=== PATIENT | male | born 1965 | race Caucasian/White ===

== ENCOUNTER 2018-08-20 20:30 | Emergency (ER) | payer MEDICAID ==
[~2018-08-20] VITALS: Ht 170.2 cm; Wt 76.0 kg
[~2018-08-20 20:30] MED LIST: ALBU6.7H INH; BENZ-38 PO; HALO5TAB PO; ONDA8TAB9 PO; TRAZ150T78 PO; tessalon PO
[2018-08-20 20:35] VITALS: BP 128/80
[2018-08-20] MEDS ORDERED: ipratropium/albuterol 3ml nebule NEB ONE (22:35)
[2018-08-20] MEDS ORDERED: ALBU8HFA PO (22:37)
[2018-08-20] MEDS ORDERED: PRED20TA PO (22:37)
== END 2018-08-20 23:07 | disposition home or self-care (01) ==
LOC: ER 20:30
DX: J44.1 Chronic obstructive pulmonary disease with (acute) exacerbation (principal); I10 Essential (primary) hypertension; E11.9 Type 2 diabetes mellitus without complications; Z79.899 Other long term (current) drug therapy; E11.42 Type 2 diabetes mellitus with diabetic polyneuropathy; Z60.2 Problems related to living alone; Z59.0 Homelessness; Z56.0 Unemployment, unspecified
CPT/HCPCS: 94640; 94760; 99283

== ENCOUNTER 2018-08-28 22:14 | Emergency (ER) | payer MEDICAID ==
[~2018-08-28] VITALS: Ht 170.2 cm; Wt 75.0 kg
[~2018-08-28 22:14] MED LIST changes: +ALBU8HFA PO; +PRED20TA PO
[2018-08-28 22:15] VITALS: BP 123/80
[2018-08-30] MEDS ORDERED: HYDR-3965 PO (18:17)
== END 2018-08-29 01:00 | disposition left against medical advice (07) ==
LOC: ER 22:15
DX: M54.9 Dorsalgia, unspecified (principal); Z53.21 Procedure and treatment not carried out due to patient leaving prior to being seen by health care provider

== ENCOUNTER 2018-08-30 16:11 | Emergency (ER) | payer MEDICAID ==
[~2018-08-30] VITALS: Ht 170.2 cm; Wt 72.7 kg
[2018-08-30 16:24] VITALS: BP 134/78
[2018-08-30] MEDS ORDERED: HYDR-3965 PO (18:17)
== END 2018-08-30 18:36 | disposition home or self-care (01) ==
LOC: ER 16:12
DX: S20.212A Contusion of left front wall of thorax, initial encounter (principal); J44.9 Chronic obstructive pulmonary disease, unspecified; E11.42 Type 2 diabetes mellitus with diabetic polyneuropathy; I10 Essential (primary) hypertension; F17.200 Nicotine dependence, unspecified, uncomplicated; Z79.899 Other long term (current) drug therapy; Z59.0 Homelessness; Z56.0 Unemployment, unspecified; Z60.2 Problems related to living alone; W18.2XXA Fall in (into) shower or empty bathtub, initial encounter; Y93.89 Activity, other specified; Y92.89 Other specified places as the place of occurrence of the external cause; Y99.8 Other external cause status
CPT/HCPCS: 71046; 99283

== ENCOUNTER 2018-10-24 17:38 | Emergency (ER) | payer MEDICAID ==
[~2018-10-24] VITALS: Ht 170.2 cm; Wt 78.0 kg
[~2018-10-24 17:38] MED LIST changes: -ALBU8HFA PO; -BENZ-38 PO; -PRED20TA PO
[2018-10-24 17:41] VITALS: BP 137/80
[2018-10-24] MEDS ORDERED: azithromycin 250mg tablet PO ONE (20:20)
[2018-10-24] MEDS ORDERED: ipratropium/albuterol 3ml nebule NEB ONE (20:20)
[2018-10-24] MEDS ORDERED: predniSONE 20 mg tablet PO ONE (20:20)
[2018-10-24] MEDS ORDERED: AZIT-63 PO (20:29)
[2018-10-24] MEDS ORDERED: PRED20TA PO (20:29)
[2018-10-24] MEDS ORDERED: ONDA4TAB12 PO (20:29)
[2018-10-24] MEDS ORDERED: GUAI237S46 PO (20:49)
[2018-10-24] MEDS ORDERED: ALBU8.5H8 IH (20:49)
== END 2018-10-24 20:58 | disposition home or self-care (01) ==
LOC: ER 17:39
DX: J40 Bronchitis, not specified as acute or chronic (principal); R11.10 Vomiting, unspecified; J44.9 Chronic obstructive pulmonary disease, unspecified; I10 Essential (primary) hypertension; E11.42 Type 2 diabetes mellitus with diabetic polyneuropathy; F17.200 Nicotine dependence, unspecified, uncomplicated; Z60.2 Problems related to living alone; Z59.0 Homelessness; Z56.0 Unemployment, unspecified; Z79.2 Long term (current) use of antibiotics; Z79.899 Other long term (current) drug therapy
CPT/HCPCS: 93005; 94640; 94760; 99283; J7512

== ENCOUNTER 2018-10-28 19:11 | Emergency (ER) | payer MEDICAID ==
[~2018-10-28] VITALS: Ht 170.2 cm; Wt 76.8 kg
[~2018-10-28 19:11] MED LIST changes: +ALBU8.5H8 IH; +AZIT-63 PO; +GUAI237S46 PO; +ONDA4TAB12 PO; +PRED20TA PO
[2018-10-28 19:18] VITALS: BP 123/74
== END 2018-10-28 23:12 | disposition left against medical advice (07) ==
LOC: ER 19:11
DX: M25.512 Pain in left shoulder (principal); Z53.21 Procedure and treatment not carried out due to patient leaving prior to being seen by health care provider

== ENCOUNTER 2018-10-31 08:59 | Emergency (ER) | payer MEDICAID ==
[~2018-10-31] VITALS: Ht 170.2 cm; Wt 78.0 kg
[2018-10-31 09:04] VITALS: BP 141/93
== END 2018-10-31 09:40 | disposition home or self-care (01) ==
LOC: ER 09:00
DX: M25.512 Pain in left shoulder (principal); R20.2 Paresthesia of skin; I10 Essential (primary) hypertension; J44.9 Chronic obstructive pulmonary disease, unspecified; E11.40 Type 2 diabetes mellitus with diabetic neuropathy, unspecified; Z60.2 Problems related to living alone; Z59.0 Homelessness; Z56.0 Unemployment, unspecified; Z79.2 Long term (current) use of antibiotics; Z79.899 Other long term (current) drug therapy
CPT/HCPCS: 99281

== ENCOUNTER 2019-06-09 13:21 | Emergency (ER) | payer MEDICAID ==
[~2019-06-09] VITALS: Ht 175.3 cm; Wt 78.8 kg
[~2019-06-09 13:21] MED LIST changes: -ALBU6.7H INH; +ALBU6.7H9 INH; -AZIT-63 PO; -GUAI237S46 PO; -PRED20TA PO
[2019-06-09 13:27] VITALS: BP 134/81
== END 2019-06-09 13:33 | disposition left against medical advice (07) ==
LOC: ER 13:21
DX: I10 Essential (primary) hypertension (principal); Z53.21 Procedure and treatment not carried out due to patient leaving prior to being seen by health care provider

== ENCOUNTER 2019-06-18 12:53 | Emergency (ER) | payer MEDICAID ==
[~2019-06-18] VITALS: Ht 170.2 cm; Wt 77.3 kg
--- NOTE | 2019-06-18 13:40 | NUR ---
PT IS NOT SUICIDAL AND NO THOUGHTS OF SELF HARM
[2019-06-18] MEDS ORDERED: normal saline 1000ML IV soln IVB ONE (14:20)
[2019-06-18 15:01] LABS: BASOPHILS # (AUTO) 0.1 X10'3 (0-0.2); BASOPHILS % (AUTO) 0.5 % (0-1); EOSINOPHILS % (AUTO) 0.1 % (0-6); HEMATOCRIT 46.4 % (42.0-52.0); HEMOGLOBIN 16.2 g/dl (14.0-17.9); LYMPHOCYTES # (AUTO) 1.5 X10'3 (1.1-4.8); MEAN CORPUSCULAR HEMOGLOBIN 33.2 PG (27.0-31.0); MEAN CORPUSCULAR HGB CONC 34.9 g/dL (33.0-36.5); MEAN CORPUSCULAR VOLUME 95.1 FL (78-98); MEAN PLATELET VOLUME 9.1 FL (7.4-10.4); MONOCYTES # (AUTO) 0.9 X10'3 (0-0.9); MONOCYTES % (AUTO) 8.3 % (2-12); NEUTROPHILS # (AUTO) 8.2 X10'3 (1.8-7.7); NEUTROPHILS % (AUTO) 77.1 % (42-75); PLATELET COUNT 134 X10'3 (140-440); RED BLOOD COUNT 4.88 X10'6 (4.70-6.10); RED CELL DISTRIBUTION WIDTH 13.7 % (11.5-14.5); WHITE BLOOD COUNT 10.7 X10'3 (4.5-11.0)
[2019-06-18 15:24] LABS: ALANINE AMINOTRANSFERASE 74 U/L (12-78); ALBUMIN 4.1 G/DL (3.4-5.0); ALBUMIN/GLOBULIN RATIO 1.1 (1.1-1.5); ALKALINE PHOSPHATASE 79 IU/L (46-116); ANION GAP 9 (8-16); ASPARTATE AMINO TRANSFERASE 204 U/L (10-37); BILIRUBIN,TOTAL 0.9 MG/DL (0.1-1.0); BLOOD UREA NITROGEN 16 MG/DL (7-18); BUN/CREATININE RATIO 17.4 (5.4-32.0); CALCIUM 9.1 MG/DL (8.5-10.1); CHLORIDE 100 MMOL/L (99-107); CREATININE 0.92 MG/DL (0.60-1.10); ETHANOL < 0.010 GM/DL (0.0-0.010); GLUCOSE 136 MG/DL (70-104); POTASSIUM 3.6 MMOL/L (3.5-5.1); SODIUM 137 MMOL/L (135-145); TOTAL CARBON DIOXIDE 28.5 MMOL/L (24-32); TOTAL PROTEIN 7.7 G/DL (6.4-8.2); eGFR 86 ML/MIN
[2019-06-18 16:27] LABS: URINE AMPHETAMINE SCREEN POSITIVE (Neg); URINE BARBITUATE SCREEN NEGATIVE (Neg); URINE BENZODIAZEPINES SCREEN NEGATIVE (Neg); URINE CANNABINOID SCREEN POSITIVE (Neg); URINE COCAINE SCREEN NEGATIVE (Neg); URINE METHADONE SCREEN NEGATIVE (Neg); URINE OPIATE SCREEN NEGATIVE (Neg); URINE PHENCYCLIDINE SCREEN NEGATIVE (Neg)
--- NOTE | 2019-06-18 17:45 | NUR ---
pt reports feeling better, no longer having hallucinations. Patient given meal. Given change of clothes.
[2019-06-18 17:46] VITALS: BP 159/109
== END 2019-06-18 18:03 | disposition home or self-care (01) ==
LOC: ER 12:54
DX: F19.10 Other psychoactive substance abuse, uncomplicated (principal); G47.00 Insomnia, unspecified; F20.9 Schizophrenia, unspecified; F31.9 Bipolar disorder, unspecified; E11.42 Type 2 diabetes mellitus with diabetic polyneuropathy; J44.9 Chronic obstructive pulmonary disease, unspecified; F41.9 Anxiety disorder, unspecified; I10 Essential (primary) hypertension; Z86.69 Personal history of other diseases of the nervous system and sense organs; F17.200 Nicotine dependence, unspecified, uncomplicated; F12.90 Cannabis use, unspecified, uncomplicated; F15.90 Other stimulant use, unspecified, uncomplicated; F10.99 Alcohol use, unspecified with unspecified alcohol-induced disorder; Z60.2 Problems related to living alone; Z59.0 Homelessness; Z56.0 Unemployment, unspecified; Z79.899 Other long term (current) drug therapy; Y90.9 Presence of alcohol in blood, level not specified
CPT/HCPCS: 36415; 80053; 80305; 80320; 85025; 99283; J7030

== ENCOUNTER 2019-06-19 07:22 | Emergency (ER) | payer MEDICAID ==
[~2019-06-19] VITALS: Ht 170.2 cm; Wt 80.0 kg
[2019-06-19 07:36] VITALS: BP 140/97
[2019-06-19] MEDS ORDERED: diphenhydrAMINE 25mg capsule PO ONE (08:05)
[2019-06-19] MEDS ORDERED: LORazepam 2 mg/ml vial IM ONE (08:20)
[2019-06-20] MEDS ORDERED: BECL7.3A INH (17:52)
[2019-06-20] MEDS ORDERED: BUSP5TAB3 PO (17:52)
[2019-06-20] MEDS ORDERED: ASEN10TA SL (17:52)
[2019-06-20] MEDS ORDERED: TRAZ150T78 PO (17:52)
[2019-06-20] MEDS ORDERED: ALBU6.7H9 INH (17:52)
== END 2019-06-19 08:45 | disposition home or self-care (01) ==
LOC: ER 07:22
DX: F41.9 Anxiety disorder, unspecified (principal); F20.9 Schizophrenia, unspecified; F31.9 Bipolar disorder, unspecified; F19.10 Other psychoactive substance abuse, uncomplicated; E11.42 Type 2 diabetes mellitus with diabetic polyneuropathy; I10 Essential (primary) hypertension; J44.9 Chronic obstructive pulmonary disease, unspecified; F12.90 Cannabis use, unspecified, uncomplicated; F15.90 Other stimulant use, unspecified, uncomplicated; F10.99 Alcohol use, unspecified with unspecified alcohol-induced disorder; Z86.69 Personal history of other diseases of the nervous system and sense organs; Z60.2 Problems related to living alone; Z56.0 Unemployment, unspecified; Z59.0 Homelessness; Z79.899 Other long term (current) drug therapy; Y90.9 Presence of alcohol in blood, level not specified
CPT/HCPCS: 96372; 99284; J2060; Q0163

== ENCOUNTER 2019-06-20 13:41 | Emergency (ER) | payer MEDICAID ==
[~2019-06-20] VITALS: Ht 170.2 cm; Wt 78.6 kg
[2019-06-20 15:34] LABS: CLARITY,URINE CLEAR (Clear); COLOR,URINE STRAW (Yellow); GLUCOSE, URINE NEGATIVE (Neg); KETONES,URINE TRACE mg/dl (Neg); LEUKOCYTE ESTERASE ,URINE NEGATIVE (Neg); NITRITES, URINE NEGATIVE (Neg); OCCULT BLOOD,URINE NEGATIVE (Neg); PROTEIN,URINE NEGATIVE (Neg); UROBILINOGEN,URINE 0.2 E.U/dL (0.2-1.0)
[2019-06-20 15:35] LABS: UA COLLECTION TYPE CLN CATCH MIDSTREAM
[2019-06-20 15:38] LABS: URINE AMPHETAMINE SCREEN NEGATIVE (Neg); URINE BARBITUATE SCREEN NEGATIVE (Neg); URINE BENZODIAZEPINES SCREEN NEGATIVE (Neg); URINE CANNABINOID SCREEN POSITIVE (Neg); URINE COCAINE SCREEN NEGATIVE (Neg); URINE METHADONE SCREEN NEGATIVE (Neg); URINE OPIATE SCREEN NEGATIVE (Neg); URINE PHENCYCLIDINE SCREEN NEGATIVE (Neg)
--- NOTE | 2019-06-20 16:00 | NUR ---
Dr Cm evaluating patient. Continue to monitor.
[2019-06-20 16:19] LABS: BASOPHILS # (AUTO) 0.1 X10'3 (0-0.2); BASOPHILS % (AUTO) 0.7 % (0-1); EOSINOPHILS # (AUTO) 0.1 X10'3 (0-0.9); EOSINOPHILS % (AUTO) 1.9 % (0-6); HEMATOCRIT 43.5 % (42.0-52.0); HEMOGLOBIN 15.4 g/dl (14.0-17.9); LYMPHOCYTES # (AUTO) 1.7 X10'3 (1.1-4.8); LYMPHOCYTES % (AUTO) 23.2 % (21-51); MEAN CORPUSCULAR HEMOGLOBIN 33.6 PG (27.0-31.0); MEAN CORPUSCULAR HGB CONC 35.4 g/dL (33.0-36.5); MEAN PLATELET VOLUME 9.3 FL (7.4-10.4); MONOCYTES # (AUTO) 0.5 X10'3 (0-0.9); MONOCYTES % (AUTO) 7.5 % (2-12); NEUTROPHILS # (AUTO) 4.8 X10'3 (1.8-7.7); NEUTROPHILS % (AUTO) 66.7 % (42-75); PLATELET COUNT 134 X10'3 (140-440); RED BLOOD COUNT 4.59 X10'6 (4.70-6.10); RED CELL DISTRIBUTION WIDTH 13.5 % (11.5-14.5); WHITE BLOOD COUNT 7.2 X10'3 (4.5-11.0)
[2019-06-20] MEDS ORDERED: acetaminophen 325mg tablet PO ONE (16:35)
[2019-06-20 16:42] LABS: ALANINE AMINOTRANSFERASE 96 U/L (12-78); ALBUMIN 3.9 G/DL (3.4-5.0); ALBUMIN/GLOBULIN RATIO 1.2 (1.1-1.5); ALKALINE PHOSPHATASE 79 IU/L (46-116); ANION GAP 7 (8-16); ASPARTATE AMINO TRANSFERASE 173 U/L (10-37); BILIRUBIN,TOTAL 1.1 MG/DL (0.1-1.0); BLOOD UREA NITROGEN 12 MG/DL (7-18); BUN/CREATININE RATIO 12.4 (5.4-32.0); CALCIUM 9.3 MG/DL (8.5-10.1); CHLORIDE 101 MMOL/L (99-107); CREATININE 0.97 MG/DL (0.60-1.10); GLUCOSE 126 MG/DL (70-104); SODIUM 139 MMOL/L (135-145); TOTAL CARBON DIOXIDE 30.8 MMOL/L (24-32); TOTAL PROTEIN 7.1 G/DL (6.4-8.2); eGFR 81 ML/MIN
[2019-06-20 16:52] LABS: ETHANOL < 0.010 GM/DL (0.0-0.010)
[2019-06-20 16:53] LABS: ACETAMINOPHEN < 2.0 UG/ML (10-30)
--- NOTE | 2019-06-20 17:18 | NUR ---
SENT [facility]
[2019-06-20] MEDS ORDERED: ASEN10TA SL (17:52)
[2019-06-20] MEDS ORDERED: BUSP5TAB3 PO (17:52)
[2019-06-20] MEDS ORDERED: ALBU6.7H9 INH (17:52)
[2019-06-20] MEDS ORDERED: BECL7.3A INH (17:52)
[2019-06-20] MEDS ORDERED: TRAZ150T78 PO (17:52)
[2019-06-20] MEDS ORDERED: albuterol 2.5 MG/3 ML nebule NEB PRN (18:45)
--- NOTE | 2019-06-20 18:56 | NUR ---
Received report and assumed care of patient from LAXMI Roberts.
--- NOTE | 2019-06-20 19:41 | NUR ---
The patient is resting with eyes closed on his right side. Respirations are even and unlabored. No s/s of distress.
[2019-06-20] MEDS: budesonide 0.5mg/2ml UD nebule IH SCH (20:00)
--- NOTE | 2019-06-20 21:10 | NUR ---
The patient is sleeping on his left side. Resp. equal and unlabored. No s/s of distress.
[2019-06-20] MEDS: traZODone 150mg tablet PO SCH (21:53)
[2019-06-20] MEDS: busPIRone 5mg tablet PO SCH (21:54)
--- NOTE | 2019-06-20 23:14 | NUR ---
The patient continues to sleep on his left side.
--- NOTE | 2019-06-21 01:00 | NUR ---
The patient is sleeping on his left side. Respirations are even and unlabored. No s/s of distress.
--- NOTE | 2019-06-21 01:30 | NUR ---
The patient is using the restroom. denies needs.
--- NOTE | 2019-06-21 03:30 | NUR ---
Patient sleeping in supine position. Resp unlabored. No s/s of distress.
--- NOTE | 2019-06-21 05:13 | NUR ---
The patient has just woke up and went to the restroom. Denies needs.
[2019-06-21 05:39] VITALS: BP 120/76
--- NOTE | 2019-06-21 05:48 | NUR ---
The patient is resting in bed with eyes closed. resp. unlabored. No s/s of distress.
--- NOTE | 2019-06-21 06:31 | NUR ---
Nursing Note: Pt laying on his L side, eyes closed, RR even and unlabored, no S&S of distress, will continue to monitor.
--- NOTE | 2019-06-21 07:30 | NUR ---
Nursing Note: Pt up to restroom, personal hygiene supplies provided. Pt reports depression and anxiety, denies SI and DTO. He reports, "Everything raining down on me, trying to wash off." He says he sees things coming from the vents. He reports that he takes Celexa 20 mg in the AM, Sapharis 8 mg at HS, and Cogentin 2 mg BID. Notified BAL Peter of these medications. He requested a psychiatric medication consult from [facility]. Will continue to monitor.
[2019-06-21] MEDS: budesonide 0.5mg/2ml UD nebule IH SCH ×2 (08:16→20:07)
[2019-06-21] MEDS ORDERED: nicotine 21mg patch - 24 hr TD SCH (08:20)
[2019-06-21] MEDS: busPIRone 5mg tablet PO SCH ×3 (08:25→20:20)
--- NOTE | 2019-06-21 08:35 | NUR ---
Nursing Note: Pt laying on L side eyes closed, RR even and unlabored, no S&S of distress, will continue to monitor.
--- NOTE | 2019-06-21 09:08 | NUR ---
Nursing Note: BAL Lozano here to assess pt for medication recommendations. Orders received for oral medications: Zyprexa 5 mg QAM, Zyprexa 15 mg QHS, Cogentin 1 mg BID, and Celexa 20 mg QAM. Will continue to monitor.
--- NOTE | 2019-06-21 10:02 | NUR ---
breaking primary, RN, pt is in bed on left side with towel covering his head, regular breathing present, no s/s of agitation apparent
[2019-06-21] MEDS ORDERED: citalopram 20mg tablet PO SCH (10:05)
[2019-06-21] MEDS ORDERED: olanzapine 10mg tablet PO SCH (10:05)
[2019-06-21] MEDS ORDERED: OLANZAPINE 5 MG TABLET PO SCH ×3 (10:19→21:00)
[2019-06-21] MEDS: benztropine 1mg tablet PO SCH ×2 (10:25→20:20)
[2019-06-21] MEDS ORDERED: LORazepam 1 MG tablet PO ONE (11:10)
[2019-06-21] MEDS ORDERED: benzonatate 100mg capsule PO ONE (11:10)
--- NOTE | 2019-06-21 11:11 | NUR ---
Nursing Note: Notified Dr. Kimble that pt reports anxiety and has a productive cough. Phlegm is clear, brownish color with dark flecks. MD ordered chest X-ray, Tesruba Anderson, and Ativan 1mg. Pt compliant with X-ray. Up to the restroom and now laying in bed. Will continue to monitor.
--- NOTE | 2019-06-21 12:10 | NUR ---
Nursing Note: Pt up to the restroom, even gait, no apparent weakness. No S&S of distress, RR even and unlabored, will continue to monitor.
--- NOTE | 2019-06-21 13:01 | NUR ---
Nursing Note: Awakened pt to give him medication. Pt now sitting up eating lunch. RR even and unlabored, no S&S of distress, will continue to monitor.
--- NOTE | 2019-06-21 13:38 | NUR ---
Nursing Note: Nurse to Nurse LAXMI Villagran, Carmelo. Awaiting response from Mukesh, will continue to monitor.
--- NOTE | 2019-06-21 14:31 | NUR ---
Nursing Note: Pt laying on L side, eyes closed, RR even and unlabored, no S&S of distress, will continue to monitor.
--- NOTE | 2019-06-21 15:16 | NUR ---
breaking primary RN, [place] call from [facility], pt has been accepted at [facility], by Dr. Mcmahon, will be picked up at 2200 tonight
--- NOTE | 2019-06-21 15:17 | NUR ---
pt is in bed resting on his left side, spontaineous breathing present, no s/s of agitation observed
--- NOTE | 2019-06-21 16:13 | NUR ---
Nursing Note: Pt laying on his left side with his head covered with a blanket. RR even and unlabored, no S&S of distress, will continue to monitor.
--- NOTE | 2019-06-21 18:08 | NUR ---
Nursing Note: Pt laying on his L side, head covered with a blanket, RR even and unlabored, no S&S of distress, will continue to monitor.
--- NOTE | 2019-06-21 20:08 | NUR ---
The patient has been resting on his bed. He appears comfortable and he denies pain. He denies that he feels suicidal or is having psychotic symptoms. He is alert and oriented and cooperative with the nursing staff.
[2019-06-21] MEDS: traZODone 150mg tablet PO SCH (20:20)
--- NOTE | 2019-06-21 21:46 | NUR ---
The patient is currently resting on his bed.
== END 2019-06-21 22:10 ==
LOC: ER 13:41
DX: R45.851 Suicidal ideations (principal); F22 Delusional disorders; E11.42 Type 2 diabetes mellitus with diabetic polyneuropathy; I10 Essential (primary) hypertension; J44.9 Chronic obstructive pulmonary disease, unspecified; F41.9 Anxiety disorder, unspecified; F32.9 Major depressive disorder, single episode, unspecified; F41.0 Panic disorder [episodic paroxysmal anxiety]; F12.90 Cannabis use, unspecified, uncomplicated; F15.90 Other stimulant use, unspecified, uncomplicated; F17.200 Nicotine dependence, unspecified, uncomplicated; Z86.69 Personal history of other diseases of the nervous system and sense organs; Z60.2 Problems related to living alone; Z59.0 Homelessness; Z56.0 Unemployment, unspecified; Z79.899 Other long term (current) drug therapy
CPT/HCPCS: 36415; 71045; 80053; 80305; 80320; 80329; 81003; 84443; 85025; 94640; 94760; 99285; J7626

== ENCOUNTER 2019-08-28 17:45 | Emergency (ER) | payer MEDICAID ==
[~2019-08-28] VITALS: Ht 170.2 cm; Wt 77.9 kg
[~2019-08-28 17:45] MED LIST changes: -ALBU8.5H8 IH; +ASEN10TA SL; +BECL7.3A INH; +BUSP5TAB3 PO; -HALO5TAB PO; -ONDA4TAB12 PO; -ONDA8TAB9 PO; -tessalon PO
--- NOTE | 2019-08-28 17:55 | NUR ---
PT PLACED IN [facility] 12 AND CHARGE NURSE FABBY NOTIFIED.
--- NOTE | 2019-08-28 18:04 | NUR ---
Patient brought back from triage. Patient changing into green scrubs.
[2019-08-28 19:06] LABS: URINE AMPHETAMINE SCREEN NEGATIVE (Neg); URINE BARBITUATE SCREEN NEGATIVE (Neg); URINE BENZODIAZEPINES SCREEN NEGATIVE (Neg); URINE CANNABINOID SCREEN POSITIVE (Neg); URINE COCAINE SCREEN NEGATIVE (Neg); URINE METHADONE SCREEN NEGATIVE (Neg); URINE OPIATE SCREEN NEGATIVE (Neg); URINE PHENCYCLIDINE SCREEN NEGATIVE (Neg)
[2019-08-28 19:11] LABS: CLARITY,URINE CLEAR (Clear); COLOR,URINE YELLOW (Yellow); GLUCOSE, URINE NEGATIVE (Neg); KETONES,URINE NEGATIVE (Neg); LEUKOCYTE ESTERASE ,URINE TRACE (Neg); NITRITES, URINE NEGATIVE (Neg); OCCULT BLOOD,URINE NEGATIVE (Neg); PH,URINE 6.5 (4.8-8.0); PROTEIN,URINE NEGATIVE (Neg); UROBILINOGEN,URINE 0.2 E.U/dL (0.2-1.0)
[2019-08-28 19:21] LABS: UA COLLECTION TYPE CLN CATCH MIDSTREAM
[2019-08-28 19:25] LABS: BACTERIA,URINE NONE SEEN /HPF (Neg); MUCUS STRANDS NONE SEEN /LPF (Neg); RBC,URINE NONE SEEN /HPF (0-2); SQUAMOUS EPITHELIAL CELL,UR FEW /LPF (FEW); WBC,URINE 0-4 /HPF (0-4)
[2019-08-28 19:32] LABS: BASOPHILS # (AUTO) 0.1 X10'3 (0-0.2); BASOPHILS % (AUTO) 0.8 % (0-1); EOSINOPHILS # (AUTO) 0.2 X10'3 (0-0.9); HEMATOCRIT 37.9 % (42.0-52.0); HEMOGLOBIN 13.1 g/dl (14.0-17.9); LYMPHOCYTES # (AUTO) 1.8 X10'3 (1.1-4.8); LYMPHOCYTES % (AUTO) 28.9 % (21-51); MEAN CORPUSCULAR HEMOGLOBIN 33.3 PG (27.0-31.0); MEAN CORPUSCULAR HGB CONC 34.4 g/dL (33.0-36.5); MEAN CORPUSCULAR VOLUME 96.6 FL (78-98); MEAN PLATELET VOLUME 9.2 FL (7.4-10.4); MONOCYTES # (AUTO) 0.4 X10'3 (0-0.9); MONOCYTES % (AUTO) 7.1 % (2-12); NEUTROPHILS # (AUTO) 3.7 X10'3 (1.8-7.7); NEUTROPHILS % (AUTO) 60.2 % (42-75); PLATELET COUNT 138 X10'3 (140-440); RED BLOOD COUNT 3.92 X10'6 (4.70-6.10); RED CELL DISTRIBUTION WIDTH 13.5 % (11.5-14.5); WHITE BLOOD COUNT 6.1 X10'3 (4.5-11.0)
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
[2019-08-28 19:40] LABS: ALANINE AMINOTRANSFERASE 28 U/L (12-78); ALBUMIN 3.4 G/DL (3.4-5.0); ALBUMIN/GLOBULIN RATIO 1.3 (1.1-1.5); ALKALINE PHOSPHATASE 78 IU/L (46-116); ANION GAP 4 (8-16); ASPARTATE AMINO TRANSFERASE 18 U/L (10-37); BILIRUBIN,TOTAL 0.2 MG/DL (0.1-1.0); BLOOD UREA NITROGEN 9 MG/DL (7-18); BUN/CREATININE RATIO 9.9 (5.4-32.0); CALCIUM 8.3 MG/DL (8.5-10.1); CHLORIDE 104 MMOL/L (99-107); CREATININE 0.91 MG/DL (0.60-1.10); ETHANOL < 0.010 GM/DL (0.0-0.010); GLUCOSE 151 MG/DL (70-104); POTASSIUM 3.6 MMOL/L (3.5-5.1); SODIUM 138 MMOL/L (135-145); TOTAL CARBON DIOXIDE 29.7 MMOL/L (24-32); TOTAL PROTEIN 6.1 G/DL (6.4-8.2); eGFR 87 ML/MIN
--- NOTE | 2019-08-28 21:07 | NUR ---
[facility] assessed patient and notified staff that he will place patient under a [id number] and seek placement.
[2019-08-28] MEDS ORDERED: ARIP5TAB14 PO (23:21)
--- NOTE | 2019-08-28 23:30 | NUR ---
Patient sleeping quietly on his left side.
[2019-08-28] MEDS ORDERED: TRAZ300T2 PO (23:41)
[2019-08-28] MEDS ORDERED: ARIP30TA3 PO (23:41)
[2019-08-28] MEDS ORDERED: BUSP10TA11 PO (23:41)
--- NOTE | 2019-08-29 00:10 | NUR ---
External med rec faxed to pharmacy. This med rec is baced on discharge rx from 06/27/19. No other med rec could be located. Law Burns provided this record to this lead technical writer.
--- NOTE | 2019-08-29 00:40 | NUR ---
Patient sleeping quietly, in view from nursing station.
--- NOTE | 2019-08-29 02:50 | NUR ---
Patient sleeping quietly.
--- NOTE | 2019-08-29 04:28 | NUR ---
Patient sleeping on his right side. In view from the nursing station.
[2019-08-29] MEDS ORDERED: ARIPIPRAZOLE 15 MG TABLET PO SCH (08:00)
[2019-08-29] MEDS: busPIRone 15mg tablet PO SCH ×2 (08:41→13:24)
--- NOTE | 2019-08-29 12:34 | NUR ---
TC TO [facility] AT [facility]. INTAKE INFORMATION GIVEN TO MADAN. FACILITY WILL CALL BACK IF PATIENT IS ACCEPTED FOR INPATIENT TREATMENT PLAN.
[2019-08-29 17:42] VITALS: BP 137/96
--- NOTE | 2019-08-29 18:44 | NUR ---
The patient is sitting at bedside eating dinner.
--- NOTE | 2019-08-29 20:37 | NUR ---
[facility] bulk [facility]
[2019-08-29] MEDS ORDERED: traZODone 150mg tablet PO SCH (21:00)
== END 2019-08-29 20:40 ==
LOC: ER 17:46
DX: R45.851 Suicidal ideations (principal); F20.9 Schizophrenia, unspecified; F12.90 Cannabis use, unspecified, uncomplicated; E11.42 Type 2 diabetes mellitus with diabetic polyneuropathy; I10 Essential (primary) hypertension; J44.9 Chronic obstructive pulmonary disease, unspecified; F41.9 Anxiety disorder, unspecified; F15.90 Other stimulant use, unspecified, uncomplicated; F10.99 Alcohol use, unspecified with unspecified alcohol-induced disorder; Z59.0 Homelessness; Z56.0 Unemployment, unspecified; Z60.2 Problems related to living alone; Z79.899 Other long term (current) drug therapy; Y90.9 Presence of alcohol in blood, level not specified
CPT/HCPCS: 36415; 80053; 80305; 80320; 81001; 85025; 99285

== ENCOUNTER 2019-09-21 13:39 | Emergency (ER) | payer MEDICAID ==
[~2019-09-21] VITALS: Ht 170.2 cm; Wt 79.5 kg
[~2019-09-21 13:39] MED LIST changes: -ALBU6.7H9 INH; +ARIP30TA3 PO; -ASEN10TA SL; -BECL7.3A INH; +BUSP10TA11 PO; -BUSP5TAB3 PO; -TRAZ150T78 PO; +TRAZ300T2 PO
[2019-09-21 13:45] VITALS: BP 147/89
[2019-09-21] MEDS ORDERED: ketorolac trometh inj. 60 MG/2 ML VIAL IM ONE (15:25)
[2019-09-21] MEDS ORDERED: IBUP-1984 PO (15:27)
--- NOTE | 2019-09-21 16:13 | NUR ---
Pt request crutches, Provider rhonda'sixto.
== END 2019-09-21 16:40 | disposition home or self-care (01) ==
LOC: ER 13:40
DX: M25.561 Pain in right knee (principal); I10 Essential (primary) hypertension; F12.90 Cannabis use, unspecified, uncomplicated; F15.90 Other stimulant use, unspecified, uncomplicated; J44.9 Chronic obstructive pulmonary disease, unspecified; E11.42 Type 2 diabetes mellitus with diabetic polyneuropathy; Z59.0 Homelessness; Z56.0 Unemployment, unspecified; Z79.899 Other long term (current) drug therapy
CPT/HCPCS: 73564; 96372; 99283; J1885

== ENCOUNTER 2019-10-13 10:30 | Emergency (ER) | payer MEDICAID ==
[~2019-10-13] VITALS: Ht 170.2 cm; Wt 79.0 kg
[~2019-10-13 10:30] MED LIST changes: +IBUP-1984 PO
[2019-10-13] MEDS ORDERED: ibuprofen tablet 400 MG TABLET PO ONE (11:15)
[2019-10-13] MEDS ORDERED: AMOX500C2 PO (11:16)
[2019-10-13] MEDS ORDERED: BENZ-16 PO (11:17)
[2019-10-13 11:45] VITALS: BP 102/66
== END 2019-10-13 11:47 | disposition home or self-care (01) ==
LOC: ER 10:30
DX: H66.92 Otitis media, unspecified, left ear (principal); R05 Cough; R09.89 Other specified symptoms and signs involving the circulatory and respiratory systems; E11.42 Type 2 diabetes mellitus with diabetic polyneuropathy; I10 Essential (primary) hypertension; J44.9 Chronic obstructive pulmonary disease, unspecified; F41.9 Anxiety disorder, unspecified; F31.9 Bipolar disorder, unspecified; F12.90 Cannabis use, unspecified, uncomplicated; F15.90 Other stimulant use, unspecified, uncomplicated; Z59.0 Homelessness; Z72.89 Other problems related to lifestyle; Z56.0 Unemployment, unspecified; Z79.899 Other long term (current) drug therapy
CPT/HCPCS: 99283

== ENCOUNTER 2019-11-23 19:17 | Emergency (ER) | payer MEDICAID ==
[~2019-11-23] VITALS: Ht 170.2 cm; Wt 75.0 kg
[~2019-11-23 19:17] MED LIST changes: -IBUP-1984 PO
[2019-11-23 19:21] VITALS: BP 148/76
[2019-11-23] MEDS ORDERED: ibuprofen tablet 400 MG TABLET PO ONE (19:45)
[2019-11-23] MEDS ORDERED: IBUP-1985 PO (20:01)
== END 2019-11-23 20:06 | disposition home or self-care (01) ==
LOC: ER 19:18
DX: G89.29 Other chronic pain (principal); M25.561 Pain in right knee; M25.562 Pain in left knee; F20.9 Schizophrenia, unspecified; I10 Essential (primary) hypertension; J44.9 Chronic obstructive pulmonary disease, unspecified; E11.9 Type 2 diabetes mellitus without complications; F41.9 Anxiety disorder, unspecified; F31.9 Bipolar disorder, unspecified; F41.0 Panic disorder [episodic paroxysmal anxiety]; F12.90 Cannabis use, unspecified, uncomplicated; F15.90 Other stimulant use, unspecified, uncomplicated; Z86.69 Personal history of other diseases of the nervous system and sense organs; Z60.2 Problems related to living alone; Z59.0 Homelessness; Z56.0 Unemployment, unspecified
CPT/HCPCS: 99282

== ENCOUNTER 2019-11-28 10:27 | Emergency (ER) | payer MEDICAID ==
[~2019-11-28] VITALS: Ht 170.2 cm; Wt 77.3 kg
[~2019-11-28 10:27] MED LIST changes: +IBUP-1985 PO
[2019-11-28] MEDS ORDERED: ketorolac trometh. 30mg/ml inj. IM ONE (11:05)
[2019-11-28 11:25] VITALS: BP 162/102
== END 2019-11-28 11:28 | disposition home or self-care (01) ==
LOC: ER 10:28
DX: M25.561 Pain in right knee (principal); I10 Essential (primary) hypertension; J44.9 Chronic obstructive pulmonary disease, unspecified; E11.42 Type 2 diabetes mellitus with diabetic polyneuropathy; F12.90 Cannabis use, unspecified, uncomplicated; F15.90 Other stimulant use, unspecified, uncomplicated; Z59.0 Homelessness; Z56.0 Unemployment, unspecified; Z79.899 Other long term (current) drug therapy
CPT/HCPCS: 96372; 99283; J1885

== ENCOUNTER 2019-12-05 19:29 | Emergency (ER) | payer MEDICAID ==
[~2019-12-05] VITALS: Ht 170.2 cm; Wt 75.0 kg
[2019-12-05 19:35] VITALS: BP 148/98
== END 2019-12-05 21:51 | disposition left against medical advice (07) ==
LOC: ER 19:29
DX: T43.621A Poisoning by amphetamines, accidental (unintentional), initial encounter (principal); Z53.21 Procedure and treatment not carried out due to patient leaving prior to being seen by health care provider; Y92.89 Other specified places as the place of occurrence of the external cause

== ENCOUNTER 2020-04-23 16:51 | Emergency (ER) | payer MEDICAID ==
[~2020-04-23] VITALS: Ht 170.2 cm; Wt 72.7 kg
[2020-04-23 18:02] VITALS: BP 123/71
[2020-04-23 18:43] LABS: CLARITY,URINE CLEAR (Clear); COLOR,URINE YELLOW (Yellow); GLUCOSE, URINE NEGATIVE (Neg); KETONES,URINE NEGATIVE (Neg); LEUKOCYTE ESTERASE ,URINE NEGATIVE (Neg); NITRITES, URINE NEGATIVE (Neg); OCCULT BLOOD,URINE NEGATIVE (Neg); PH,URINE 6.5 (4.8-8.0); PROTEIN,URINE NEGATIVE (Neg); UA COLLECTION TYPE CLN CATCH MIDSTREAM; UROBILINOGEN,URINE 0.2 E.U/dL (0.2-1.0)
[2020-04-23 18:44] LABS: BASOPHILS # (AUTO) 0.1 X10'3 (0-0.2); BASOPHILS % (AUTO) 0.7 % (0-1); EOSINOPHILS % (AUTO) 0.4 % (0-6); HEMATOCRIT 41.5 % (42.0-52.0); HEMOGLOBIN 14.1 g/dl (14.0-17.9); LYMPHOCYTES # (AUTO) 1.5 X10'3 (1.1-4.8); MEAN CORPUSCULAR HEMOGLOBIN 32.7 PG (27.0-31.0); MEAN CORPUSCULAR VOLUME 96.3 FL (78-98); MEAN PLATELET VOLUME 8.9 FL (7.4-10.4); MONOCYTES # (AUTO) 0.7 X10'3 (0-0.9); MONOCYTES % (AUTO) 6.9 % (2-12); NEUTROPHILS # (AUTO) 7.8 X10'3 (1.8-7.7); PLATELET COUNT 154 X10'3 (140-440); RED BLOOD COUNT 4.31 X10'6 (4.70-6.10); RED CELL DISTRIBUTION WIDTH 13.6 % (11.5-14.5); WHITE BLOOD COUNT 10.2 X10'3 (4.5-11.0)
[2020-04-23 18:53] LABS: PARTIAL THROMBOPLASTIN TIME 30 SECONDS (22-32)
[2020-04-23 18:57] LABS: ALANINE AMINOTRANSFERASE 40 U/L (12-78); ALBUMIN 3.9 G/DL (3.4-5.0); ALBUMIN/GLOBULIN RATIO 1.4 (1.1-1.5); ALKALINE PHOSPHATASE 83 IU/L (46-116); ANION GAP 7 (8-16); ASPARTATE AMINO TRANSFERASE 48 U/L (10-37); BLOOD UREA NITROGEN 9 MG/DL (7-18); BUN/CREATININE RATIO 9.3 (5.4-32.0); CHLORIDE 103 MMOL/L (99-107); CREATININE 0.97 MG/DL (0.60-1.10); GLUCOSE 85 MG/DL (70-104); MAGNESIUM 1.9 MG/DL (1.5-2.4); POTASSIUM 3.9 MMOL/L (3.5-5.1); SODIUM 140 MMOL/L (135-145); TOTAL CARBON DIOXIDE 30.3 MMOL/L (24-32); TOTAL PROTEIN 6.7 G/DL (6.4-8.2); eGFR 80 ML/MIN
[2020-04-23 19:48] LABS: URINE AMPHETAMINE SCREEN NEGATIVE (Neg); URINE BARBITUATE SCREEN NEGATIVE (Neg); URINE BENZODIAZEPINES SCREEN NEGATIVE (Neg); URINE CANNABINOID SCREEN POSITIVE (Neg); URINE COCAINE SCREEN NEGATIVE (Neg); URINE METHADONE SCREEN NEGATIVE (Neg); URINE OPIATE SCREEN NEGATIVE (Neg); URINE PHENCYCLIDINE SCREEN NEGATIVE (Neg)
== END 2020-04-23 19:30 | disposition home or self-care (01) ==
LOC: ER 16:51
DX: R07.89 Other chest pain (principal); E86.0 Dehydration; E11.42 Type 2 diabetes mellitus with diabetic polyneuropathy; J44.9 Chronic obstructive pulmonary disease, unspecified; I10 Essential (primary) hypertension; F41.9 Anxiety disorder, unspecified; F31.9 Bipolar disorder, unspecified; F20.9 Schizophrenia, unspecified; F12.90 Cannabis use, unspecified, uncomplicated; F15.90 Other stimulant use, unspecified, uncomplicated; Z86.69 Personal history of other diseases of the nervous system and sense organs; Z60.2 Problems related to living alone; Z59.0 Homelessness; Z56.0 Unemployment, unspecified; Z72.89 Other problems related to lifestyle; Z79.899 Other long term (current) drug therapy
CPT/HCPCS: 36415; 71045; 80053; 80305; 81003; 83735; 84484; 85025; 85610; 85730; 93005; 99285

== ENCOUNTER 2020-05-14 05:22 | Emergency (ER) | payer MEDICAID ==
[~2020-05-14] VITALS: Ht 170.2 cm; Wt 69.5 kg
[2020-05-14 06:02] LABS: BASOPHILS # (AUTO) 0.1 X10'3 (0-0.2); BASOPHILS % (AUTO) 0.9 % (0-1); EOSINOPHILS % (AUTO) 0.3 % (0-6); HEMATOCRIT 45.8 % (42.0-52.0); HEMOGLOBIN 15.4 g/dl (14.0-17.9); LYMPHOCYTES # (AUTO) 1.4 X10'3 (1.1-4.8); LYMPHOCYTES % (AUTO) 13.9 % (21-51); MEAN CORPUSCULAR HGB CONC 33.7 g/dL (33.0-36.5); MEAN CORPUSCULAR VOLUME 97.9 FL (78-98); MEAN PLATELET VOLUME 8.8 FL (7.4-10.4); MONOCYTES # (AUTO) 0.7 X10'3 (0-0.9); MONOCYTES % (AUTO) 6.9 % (2-12); NEUTROPHILS # (AUTO) 7.7 X10'3 (1.8-7.7); PLATELET COUNT 181 X10'3 (140-440); RED BLOOD COUNT 4.67 X10'6 (4.70-6.10); RED CELL DISTRIBUTION WIDTH 13.5 % (11.5-14.5); WHITE BLOOD COUNT 9.9 X10'3 (4.5-11.0)
[2020-05-14] MEDS ORDERED: BUSP10TA11 PO (06:02)
[2020-05-14] MEDS ORDERED: TRAM50TA2 PO (06:02)
[2020-05-14] MEDS ORDERED: ASEN10TA3 SL (06:02)
[2020-05-14] MEDS ORDERED: LORA10TA7 PO (06:02)
--- NOTE | 2020-05-14 06:06 | NUR ---
Pt. reports that he was recently dx. with angina about two months ago. He was discharged with rx. for nitro SL prn. Pt. took 2 tabs this morning at the onset of his CP. He describes that the pain started at the L side of his chest and radiated down to his L arm. He states that the sensation was sharp. He had relief after the two tabs of nitro. Pt. also adds that he took three ASA 81mg this AM.
[2020-05-14 06:18] LABS: ALANINE AMINOTRANSFERASE 26 U/L (12-78); ALBUMIN 4.2 G/DL (3.4-5.0); ALBUMIN/GLOBULIN RATIO 1.3 (1.1-1.5); ALKALINE PHOSPHATASE 89 IU/L (46-116); ANION GAP 8 (8-16); ASPARTATE AMINO TRANSFERASE 19 U/L (10-37); BILIRUBIN,TOTAL 0.5 MG/DL (0.1-1.0); BLOOD UREA NITROGEN 19 MG/DL (7-18); BUN/CREATININE RATIO 18.6 (5.4-32.0); CALCIUM 9.5 MG/DL (8.5-10.1); CHLORIDE 103 MMOL/L (99-107); CREATININE 1.02 MG/DL (0.60-1.10); GLUCOSE 116 MG/DL (70-104); POTASSIUM 4.4 MMOL/L (3.5-5.1); SODIUM 139 MMOL/L (135-145); TOTAL CARBON DIOXIDE 28.5 MMOL/L (24-32); TOTAL PROTEIN 7.4 G/DL (6.4-8.2); eGFR 76 ML/MIN
[2020-05-14 06:21] LABS: TROPONIN I < 0.04 NG/ML (0.0-0.05)
[2020-05-14 06:24] LABS: ETHANOL < 0.010 GM/DL (0.0-0.010)
[2020-05-14 06:27] LABS: URINE AMPHETAMINE SCREEN NEGATIVE (Neg); URINE BARBITUATE SCREEN NEGATIVE (Neg); URINE BENZODIAZEPINES SCREEN NEGATIVE (Neg); URINE CANNABINOID SCREEN POSITIVE (Neg); URINE COCAINE SCREEN NEGATIVE (Neg); URINE METHADONE SCREEN NEGATIVE (Neg); URINE OPIATE SCREEN NEGATIVE (Neg); URINE PHENCYCLIDINE SCREEN NEGATIVE (Neg)
[2020-05-14] MEDS ORDERED: ondansetron 4mg rapidly disintigrating tab PO ONE (07:00)
[2020-05-14] MEDS ORDERED: HYDROcodone/acetaminophen 5mg/325mg tablet PO ONE (07:00)
--- NOTE | 2020-05-14 07:24 | NUR ---
PT C/O RIGHT BABY FINGER PAIN AND OTOOLE. NORCO GIVEN. PT APPROPRIATE WITH CARE.
[2020-05-14] MEDS ORDERED: asenapine 5mg TAB.SUBL SL SCH ×2 (11:34→11:58)
[2020-05-14] MEDS ORDERED: ASENAPINE 10 MG SL SCH (11:59)
[2020-05-14] MEDS: busPIRone 15mg tablet PO SCH ×2 (12:23→20:28)
[2020-05-14] MEDS: ASENAPINE 10 MG SL SCH ×2 (12:24→20:28)
[2020-05-14] MEDS: loratadine 10mg tablet PO SCH (12:24)
--- NOTE | 2020-05-14 12:30 | NUR ---
pt meds checked and sent to the pharmacy ,pt has cannabis 3 different type name tagged and handed over to the java developer with security clearance.
--- NOTE | 2020-05-14 13:32 | NUR ---
pt resting in bed quietly .rr even and non labored will cont to monitor.
--- NOTE | 2020-05-14 14:14 | NUR ---
Up to use restroom at this time.No distress noted.
--- NOTE | 2020-05-14 15:34 | NUR ---
pt resting in bed quietly ,no distress noted.
--- NOTE | 2020-05-14 18:06 | NUR ---
PACKET FAXED [facility]
--- NOTE | 2020-05-14 18:26 | NUR ---
PT REQUESTING NICOTINE PATCH, SMOKES 3 PACKS A DAY. ADAM PEARL VERBAL ORDER 21 MG NICOTINE PATCH Q 24 HRS
[2020-05-14] MEDS ORDERED: nicotine 21mg patch - 24 hr TD ONE (18:30)
--- NOTE | 2020-05-14 19:30 | NUR ---
PT EATING DINNER AT THIS TIME. NO NEEDS AT THE MOMENT
[2020-05-14] MEDS: traMADol 50MG tablet PO SCH (20:27)
[2020-05-14] MEDS ORDERED: ASPI-611 PO (20:38)
[2020-05-14] MEDS ORDERED: NITR0.4T51 SL (20:38)
--- NOTE | 2020-05-14 20:42 | NUR ---
PT STATES HE TAKES DAILY BABY ASPIRIN AND NITRO SL PRN FOR ANGINA. WILL ADD TO MED REC. PT ALSO REQUESTING TO RETIME SAPHRIS TO 0600 AND 1800 PER HIS USUAL SCHEDULE AT HOME - PHARMACIST AWARE AND WILL CHANGE
--- NOTE | 2020-05-14 21:20 | NUR ---
[facility] AT FOR EVAL. PT REPORTING WANTING TO SLIT WRISTS. WILL BE PLACED ON 1798
--- NOTE | 2020-05-14 22:30 | NUR ---
PT RESTING IN BED, EYES CLOSED, BUT RESTLESS. REPORTS NO NEEDS, WILL CONTINUE TO MONITOR
--- NOTE | 2020-05-14 23:30 | NUR ---
PT APPEARS TO BE ASLEEP. RR EVEN AND UNLABORED, WILL CONTINUE TO MONITOR
--- NOTE | 2020-05-15 00:30 | NUR ---
PT APPEARS ASLEEP, RR EVEN AND UNLABORED. WILL CONTINUE TO MONITOR
--- NOTE | 2020-05-15 01:30 | NUR ---
PT APPEARS ASLEEP, RR EVEN AND UNLABORED. WILL CONTINUE TO MONITOR
--- NOTE | 2020-05-15 02:42 | NUR ---
PT REQUESTING TRAZADONE, NO RX ON MED REC OR ON EXTERNAL MED HX. PT STATES "I TAKE 2 EVERY NIGHT - CHECK MY SHIRT POCKET THEY ARE RIGHT THERE". CHECKED PRESCRIPTION BOTTLE OF TRAZADONE LOCKED IN PHARMACY WITH PHARMACIST - BOTTLE'S NAME HAS BEEN SCRATCHED OFF. ASKED PT WHERE HE GETS HIS RX FILLED, "[facility]". EXPLAINED TO PT THAT THE BOTTLE HE HAD OF TRAZADONE WAS FROM [employer], DOES NOT HAVE HIS NAME ON IT, AND HIS EXTERNAL MED HX DOES NOT INCLUDE TRAZADONE, THEREFORE HE DOES NOT HAVE A VALID RX FOR TRAZADONE. OFFERRED MELATONIN TO AID SLEEP, HE AGREED WITH PLAN. EXPLAINED SITUATION TO CHRISTIN PEARL AND OBTAINED ORDER FOR IT
[2020-05-15] MEDS ORDERED: Melatonin 3mg tablet PO SCH (02:45)
[2020-05-15] MEDS ORDERED: Melatonin 3mg tablet PO ONE (02:45)
--- NOTE | 2020-05-15 03:30 | NUR ---
PT ASLEEP, RR EVEN AND UNLABORED. WILL CONTINUE TO MONITOR
--- NOTE | 2020-05-15 04:23 | NUR ---
PT ASLEEP, RR EVEN AND UNLABORED. WILL CONTINUE TO MONITOR
--- NOTE | 2020-05-15 05:20 | NUR ---
PT ASLEEP, RR EVEN AND UNLABORED. WILL CONTINUE TO MONITOR
[2020-05-15] MEDS: ASENAPINE 10 MG SL SCH ×3 (06:13→18:21)
[2020-05-15] MEDS: loratadine 10mg tablet PO SCH (09:47)
[2020-05-15] MEDS: busPIRone 15mg tablet PO SCH ×3 (09:47→20:25)
[2020-05-15] MEDS ORDERED: nicotine 21mg patch - 24 hr TD ONE (12:05)
--- NOTE | 2020-05-15 15:06 | NUR ---
JORGE A [employer] MGR AT BEDSIDE TALKING WITH PT.
--- NOTE | 2020-05-15 15:17 | NUR ---
JORGE A PT [employer]. [phone]
[2020-05-15] MEDS: traMADol 50MG tablet PO PRN (16:57)
--- NOTE | 2020-05-15 18:30 | NUR ---
pt sitting up in bed eating dinner without issue. is calm, pleasant, cooperative with staff. will continue to monitor
--- NOTE | 2020-05-15 19:35 | NUR ---
PT LAYING IN BED AWAKE. NO S/S DISCOMFORT. WILL CONTINUE TO MONITOR
[2020-05-15] MEDS: traMADol 50MG tablet PO SCH (20:25)
[2020-05-15] MEDS: OLANZapine 2.5MG tablet PO SCH (20:25)
--- NOTE | 2020-05-15 20:43 | NUR ---
pt reporting straining with bowel movements and asked for a softener. per edmd irma, ordered colace 100mg po x1 dose now. order placed as received
[2020-05-15] MEDS ORDERED: docusate sod 100mg capsule PO ONE (20:45)
--- NOTE | 2020-05-15 21:28 | NUR ---
pt reports suicidal ideation with no current plan. denies auditory hallucinations or homicidal ideation. states visual hallucinations of "things coming down from the ceiling." pt is calm, polite, and cooperative with interview and states he does not feel the medicaitons have started working but he states he knows they take some time before they fully work. pt is sitting in bed reading book.
[2020-05-15] MEDS ORDERED: Melatonin 3mg tablet PO PRN (21:30)
--- NOTE | 2020-05-15 22:30 | NUR ---
pt appears asleep laying on left side. no s/s distress and respirations even and unlabored. will continue to monitor.
--- NOTE | 2020-05-15 23:28 | NUR ---
pt appears asleep laying on back. no s/s distress and respirations even and unlabored. will continue to monitor.
--- NOTE | 2020-05-16 00:30 | NUR ---
pt appears asleep laying on back. no s/s distress and respirations even and unlabored. will continue to monitor.
--- NOTE | 2020-05-16 01:25 | NUR ---
pt appears asleep laying on right side. no s/s distress and respirations even and unlabored. will continue to monitor.
--- NOTE | 2020-05-16 03:40 | NUR ---
pt appears asleep laying on back. no s/s distress and respirations even and unlabored. will continue to monitor.
--- NOTE | 2020-05-16 04:50 | NUR ---
pt appears asleep laying on left side. no s/s distress and respirations even and unlabored. will continue to monitor.
--- NOTE | 2020-05-16 05:40 | NUR ---
pt awake for morning vitals and requesting prn pain med for hand pain. pt now laying back in bed.
[2020-05-16] MEDS: traMADol 50MG tablet PO PRN (05:54)
[2020-05-16] MEDS: OLANZapine 2.5MG tablet PO SCH ×2 (08:01→20:10)
[2020-05-16] MEDS: loratadine 10mg tablet PO SCH (08:01)
[2020-05-16] MEDS: busPIRone 15mg tablet PO SCH ×3 (08:01→20:09)
[2020-05-16] MEDS: ASENAPINE 10 MG SL SCH (18:00)
--- NOTE | 2020-05-16 19:23 | NUR ---
Pt requests nicotine patch for tomorrow morning. He states he smokes "over a pack a day." Eeo Officer consults with BAL Silveira and a 21mg nicotine patch is ordered for 05/17/20 at 0800.
[2020-05-16] MEDS: traMADol 50MG tablet PO SCH (20:10)
--- NOTE | 2020-05-16 21:18 | NUR ---
PT given HS medications. He requests his PRN melatonin which is given to him along with milk and grahm crackers.
--- NOTE | 2020-05-16 21:19 | NUR ---
PT used the restroom, urinated.
[2020-05-16 21:40] VITALS: BP 146/78
[2020-05-16] MEDS ORDERED: TRAM50TA2 PO ×2 (22:25→22:45)
[2020-05-16] MEDS ORDERED: NICO-687 TOP (22:25)
[2020-05-16] MEDS ORDERED: OLAN5TAB3 PO (22:25)
[2020-05-16] MEDS ORDERED: MELA3TAB70 PO (22:25)
[2020-05-17] MEDS ORDERED: nicotine 21mg patch - 24 hr TD ONE (08:00)
== END 2020-05-16 21:44 ==
LOC: ER 05:23
DX: S62.666A Nondisplaced fracture of distal phalanx of right little finger, initial encounter for closed fracture (principal); R45.851 Suicidal ideations; R07.89 Other chest pain; F12.90 Cannabis use, unspecified, uncomplicated; E11.42 Type 2 diabetes mellitus with diabetic polyneuropathy; I10 Essential (primary) hypertension; J44.9 Chronic obstructive pulmonary disease, unspecified; F41.9 Anxiety disorder, unspecified; F31.9 Bipolar disorder, unspecified; F20.9 Schizophrenia, unspecified; F17.200 Nicotine dependence, unspecified, uncomplicated; F15.90 Other stimulant use, unspecified, uncomplicated; Z72.89 Other problems related to lifestyle; Z60.2 Problems related to living alone; Z59.0 Homelessness; Z56.0 Unemployment, unspecified; Z79.82 Long term (current) use of aspirin; Z79.899 Other long term (current) drug therapy; W18.39XA Other fall on same level, initial encounter; Y93.89 Activity, other specified; Y92.89 Other specified places as the place of occurrence of the external cause; Y99.8 Other external cause status
CPT/HCPCS: 36415; 73140; 80053; 80305; 80320; 84484; 85025; 93005; 99285

== ENCOUNTER 2020-09-30 19:53 | Emergency (ER) | payer MEDICAID ==
[~2020-09-30] VITALS: Ht 170.2 cm; Wt 81.1 kg
[~2020-09-30 19:53] MED LIST changes: +ALBU8HFA PO; -ARIP30TA3 PO; +ASPI81TA52 PO; +ATOR20TA PO; +BUS15T PO; -BUSP10TA11 PO; +CARI4.5C PO; +FLUO-167 PO; +IBUP-1984 PO; -IBUP-1985 PO; +LORA10TA65 PO; +NICO-687 TD; +NITR0.4T51 SL; +PRAZ1CAP5 PO; +TRAZ-256 PO; -TRAZ300T2 PO
[2020-09-30 21:06] LABS: BASOPHILS # (AUTO) 0.1 X10'3 (0-0.2); BASOPHILS % (AUTO) 0.7 % (0-1); EOSINOPHILS # (AUTO) 0.1 X10'3 (0-0.9); HEMATOCRIT 38.5 % (42.0-52.0); HEMOGLOBIN 13.1 g/dl (14.0-17.9); LYMPHOCYTES # (AUTO) 1.2 X10'3 (1.1-4.8); LYMPHOCYTES % (AUTO) 16.2 % (21-51); MEAN CORPUSCULAR HGB CONC 34.2 g/dL (33.0-36.5); MEAN CORPUSCULAR VOLUME 93.8 FL (78-98); MEAN PLATELET VOLUME 9.2 FL (7.4-10.4); MONOCYTES # (AUTO) 0.4 X10'3 (0-0.9); MONOCYTES % (AUTO) 5.5 % (2-12); NEUTROPHILS # (AUTO) 5.7 X10'3 (1.8-7.7); NEUTROPHILS % (AUTO) 76.6 % (42-75); PLATELET COUNT 151 X10'3 (140-440); RED CELL DISTRIBUTION WIDTH 13.7 % (11.5-14.5); WHITE BLOOD COUNT 7.4 X10'3 (4.5-11.0)
[2020-09-30 21:26] LABS: ALANINE AMINOTRANSFERASE 28 U/L (12-78); ALBUMIN 3.6 G/DL (3.4-5.0); ALBUMIN/GLOBULIN RATIO 1.2 (1.1-1.5); ALKALINE PHOSPHATASE 96 IU/L (46-116); ANION GAP 7 (8-16); ASPARTATE AMINO TRANSFERASE 8 U/L (10-37); BILIRUBIN,TOTAL 0.3 MG/DL (0.1-1.0); BLOOD UREA NITROGEN 23 MG/DL (7-18); BUN/CREATININE RATIO 21.9 (5.4-32.0); CALCIUM 8.8 MG/DL (8.5-10.1); CHLORIDE 105 MMOL/L (99-107); CREATININE 1.05 MG/DL (0.60-1.10); ETHANOL < 0.010 GM/DL (0.0-0.010); GLUCOSE 130 MG/DL (70-104); POTASSIUM 4.2 MMOL/L (3.5-5.1); SODIUM 140 MMOL/L (135-145); TOTAL CARBON DIOXIDE 27.9 MMOL/L (24-32); TOTAL PROTEIN 6.5 G/DL (6.4-8.2); eGFR 73 ML/MIN
[2020-09-30 21:31] LABS: URINE AMPHETAMINE SCREEN NEGATIVE (Neg); URINE BARBITUATE SCREEN NEGATIVE (Neg); URINE BENZODIAZEPINES SCREEN NEGATIVE (Neg); URINE CANNABINOID SCREEN POSITIVE (Neg); URINE COCAINE SCREEN NEGATIVE (Neg); URINE METHADONE SCREEN NEGATIVE (Neg); URINE OPIATE SCREEN NEGATIVE (Neg); URINE PHENCYCLIDINE SCREEN NEGATIVE (Neg)
[2020-10-01] MEDS ORDERED: ATEN25TA PO (00:09)
[2020-10-01] MEDS ORDERED: LISI-604 PO (00:09)
[2020-10-01] MEDS ORDERED: SUCR1TAB PO (00:09)
--- NOTE | 2020-10-01 00:10 | NUR ---
pt sleeping peacfully supine resp even and unlabored . pt in the direct line of sight of nursing staff.
[2020-10-01] MEDS ORDERED: TRAZ-256 PO (00:13)
[2020-10-01] MEDS ORDERED: PANT20TA18 PO (00:20)
[2020-10-01] MEDS ORDERED: BUSP30TA2 PO (00:22)
[2020-10-01] MEDS ORDERED: BUSP7.5T3 PO (00:22)
[2020-10-01] MEDS ORDERED: PRAZ1CAP5 PO (00:25)
[2020-10-01] MEDS ORDERED: NICO-687 TOP (00:27)
[2020-10-01] MEDS ORDERED: NICO-731 TOP (00:29)
[2020-10-01] MEDS ORDERED: nitroGLYCERIN 0.4mg SUBLingual tab SL PRN (01:25)
[2020-10-01] MEDS ORDERED: albuterol 2.5 MG/3 ML nebule NEB PRN (01:30)
[2020-10-01] MEDS ORDERED: traZODone 50mg tablet PO PRN (01:30)
[2020-10-01 05:12] VITALS: BP_DIAS 67
--- NOTE | 2020-10-01 06:49 | NUR ---
Patient sleeping on left side. No distress observed. Continue to monitor.
[2020-10-01] MEDS ORDERED: pantoprazole 40mg Tablet.DR PO SCH (07:30)
[2020-10-01] MEDS: busPIRone 15mg tablet PO SCH ×2 (07:44→12:42)
[2020-10-01] MEDS: sucralfate 1 gm tablet PO SCH ×2 (07:44→12:41)
[2020-10-01 07:47] VITALS: BP_SYST 100
[2020-10-01] MEDS ORDERED: loratadine 10mg tablet PO SCH (08:00)
[2020-10-01] MEDS ORDERED: ibuprofen tablet 400 MG TABLET PO SCH (08:00)
[2020-10-01] MEDS ORDERED: atenolol 25mg tablet PO SCH (08:00)
[2020-10-01] MEDS ORDERED: lisinopril 5mg tablet PO SCH (08:00)
[2020-10-01] MEDS ORDERED: aspirin 81mg tablet.DR PO SCH (08:00)
[2020-10-01] MEDS ORDERED: nicotine 14mg patch - 24hr TD SCH (08:00)
--- NOTE | 2020-10-01 09:00 | NUR ---
Elie MC, evaluating patient. Continue to monitor.
--- NOTE | 2020-10-01 09:43 | NUR ---
Patient using the phone. No distress observed. Continue to monitor.
--- NOTE | 2020-10-01 11:10 | NUR ---
Patient sleeping in bed. No distress observed. Continue to monitor.
--- NOTE | 2020-10-01 12:55 | NUR ---
Patient eating lunch. No distress observed. Continue to monitor.
--- NOTE | 2020-10-01 13:36 | NUR ---
called [employer] and they said they have an hour wait but will call when someone is on their way to tile picker pt.
[2020-10-01] MEDS ORDERED: atorvastatin 20mg tablet PO SCH (21:00)
[2020-10-01] MEDS ORDERED: prazosin 1mg capsule PO SCH (21:00)
== END 2020-10-01 14:40 ==
LOC: ER 19:53
DX: R45.851 Suicidal ideations (principal); I10 Essential (primary) hypertension; J44.9 Chronic obstructive pulmonary disease, unspecified; E11.9 Type 2 diabetes mellitus without complications; F41.9 Anxiety disorder, unspecified; F31.9 Bipolar disorder, unspecified; F20.9 Schizophrenia, unspecified; F12.90 Cannabis use, unspecified, uncomplicated; Z86.69 Personal history of other diseases of the nervous system and sense organs; Z56.0 Unemployment, unspecified; Z59.0 Homelessness; Z88.8 Allergy status to other drugs, medicaments and biological substances; Z79.82 Long term (current) use of aspirin; Z79.899 Other long term (current) drug therapy
CPT/HCPCS: 36415; 80053; 80305; 80320; 85025; 99285

== ENCOUNTER 2020-10-19 02:33 | Emergency (ER) | payer MEDICAID ==
[~2020-10-19] VITALS: Ht 170.2 cm; Wt 75.0 kg
[~2020-10-19 02:33] MED LIST changes: +ATEN25TA PO; -BUS15T PO; +BUSP30TA2 PO; -CARI4.5C PO; -FLUO-167 PO; +LISI-604 PO; -NICO-687 TD; +NICO-731 TOP; +PANT20TA18 PO; +SUCR1TAB PO
[2020-10-19 02:41] VITALS: BP 136/72
== END 2020-10-19 02:49 | disposition home or self-care (01) ==
LOC: ER 02:33
DX: R45.851 Suicidal ideations (principal); E11.42 Type 2 diabetes mellitus with diabetic polyneuropathy; I10 Essential (primary) hypertension; J44.9 Chronic obstructive pulmonary disease, unspecified; F41.9 Anxiety disorder, unspecified; F31.9 Bipolar disorder, unspecified; F20.9 Schizophrenia, unspecified; F12.90 Cannabis use, unspecified, uncomplicated; F15.90 Other stimulant use, unspecified, uncomplicated; Z86.69 Personal history of other diseases of the nervous system and sense organs; Z59.0 Homelessness; Z60.2 Problems related to living alone; Z56.0 Unemployment, unspecified; Z88.8 Allergy status to other drugs, medicaments and biological substances; Z79.82 Long term (current) use of aspirin; Z79.899 Other long term (current) drug therapy
CPT/HCPCS: 99283